=== PATIENT | male | born 1990 | race Hispanic/Latino ===

== ENCOUNTER 2020-03-13 11:53 | Inpatient (IN) | payer OTHER ==
[2020-03-13] MEDS ORDERED: NITROGLYCERIN 2% OINT 1 GM TP ONE (12:32)
[2020-03-13] MEDS ORDERED: FUROSEMIDE 40 MG/4 ML INJ IV ONE (12:36)
--- NOTE | 2020-03-13 12:36 | XRay Report ---
CHEST 2 VIEWS INDICATION / CLINICAL INFORMATION: Chest Pain. FINDINGS: SUPPORT DEVICES: None. HEART / MEDIASTINUM: Cardiomegaly. LUNGS / PLEURA: Borderline interstitial edema. No pleural effusion Signer Name: Jalil Valente MD Signed: 03/13/2020 12:31 PM Workstation Name: [id number]
--- NOTE | 2020-03-13 12:45 | Emergency Department Report ---
ED Shortness of Breath HPI - General Chief Complaint: High BP Stated Complaint: SHORTNESS OF BREATH Time Seen by Provider: 03/13/20 12:27 Source: patient Mode of arrival: Ambulatory Limitations: No Limitations - History of Present Illness Initial Comments: Patient is a 29-year-old F [place]gu[place] male with a past medical history of hypertension and congestive heart failure who is noncompliant with his medications who is presenting with shortness of breath over the last several days. He denies chest pain. States the shortness of breath is worse with exe rtion and with lying flat. Denies cough cold congestion fevers or chills. Patient states he has some mild swelling to his bilateral lower extremities with but this is mild. Patient states has been off of his medications because after he got out of the hospital last he was unable to get medications filled because he had no primary care physician. - Related Data Allergies Allergy/AdvReac Type Severity Reaction Status Date / Time No Known Allergies Allergy Unverified 03/13/20 12:05 ED Review of Systems ROS: Stated complaint: SHORTNESS OF BREATH Other details as noted in HPI Comment: All other systems reviewed and negative ED Past Medical Hx - Past Medical History Hx Hypertension: Yes Hx Congestive Heart Failure: Yes - Surgical History Past Surgical History?: No - Social History Smoking Status: Never Smoker ED Physical Exam - General Limitations: No Limitations General appearance: alert, in no apparent distress - Head Head exam: Present: atraumatic, normocephalic - Eye Eye exam: Present: normal appearance - ENT ENT exam: Present: mucous membranes moist - Neck Neck exam: Present: normal inspection - Respiratory Respiratory exam: Present: rales (mild at bilateral base). Absent: normal lung sounds bilaterally, respiratory distress, wheezes, rhonchi, stridor - Cardiovascular Cardiovascular Exam: Present: regular rate, normal rhythm, normal heart sounds. Absent: systolic murmur, diastolic murmur, rubs, gallop - GI/Abdominal GI/Abdominal exam: Present: soft, normal bowel sounds - Rectal Rectal exam: Present: deferred - Extremities Exam Extremities exam: Present: normal inspection, pedal edema (+1), other - Back Exam Back exam: Present: normal inspection - Neurological Exam Neurological exam: Present: alert, oriented X3 - Psychiatric Psychiatric exam: Present: normal affect, normal mood - Skin Skin exam: Present: warm, dry, intact, normal color. Absent: rash ED Course Vital Signs 03/13/20 03/13/20 03/13/20 12:08 13:08 13:15 Temperature 97.6 F Pulse Rate 104 H 98 H 98 H Respiratory 24 Rate Blood Pressure 207/154 190/157 190/157 O2 Sat by Pulse 96 Oximetry 03/13/20 14:26 Temperature Pulse Rate Respiratory 18 Rate Blood Pressure O2 Sat by Pulse 100 Oximetry ED Medical Decision Making - Lab Data Result diagrams: 03/13/20 12:33 03/13/20 12:33 Lab Results 03/13/20 03/13/20 Range/Units 12:33 12:33 WBC 9.7 (4.5-11.0) K/mm3 RBC 5.10 H (3.65-5.03) M/mm3 Hgb 11.7 L (11.8-15.2) gm/dl Hct 37.1 (35.5-45.6) % MCV 73 L (84-94) fl MCH 23 L (28-32) pg MCHC 32 (32-34) % RDW 19.2 H (13.2-15.2) % Plt Count 254 (140-440) K/mm3 Lymph % (Auto) 24.6 (13.4-35.0) % [place] % (Auto) 4.9 (0.0-7.3) % Eos % (Auto) 2.6 (0.0-4.3) % Baso % (Auto) 0.7 (0.0-1.8) % Lymph # (Auto) 2.4 (1.2-5.4) K/mm3 [place] # (Auto) 0.5 (0.0-0.8) K/mm3 Eos # (Auto) 0.3 (0.0-0.4) K/mm3 Baso # (Auto) 0.1 (0.0-0.1) K/mm3 Seg Neutrophils % 67.2 (40.0-70.0) % Seg Neutrophils # 6.5 (1.8-7.7) K/mm3 Sodium 140 (137-145) mmol/L Potassium 4.0 (3.6-5.0) mmol/L Chloride 106.8 (98-107) mmol/L Carbon Dioxide 20 L (22-30) mmol/L Anion Gap 17 mmol/L BUN 28 H (9-20) mg/dL Creatinine 1.3 (0.8-1.3) mg/dL Estimated GFR > 60 ml/min BUN/Creatinine Ratio 22 % Glucose 91 (75-100) mg/dL Calcium 8.6 (8.4-10.2) mg/dL Troponin T < 0.010 (0.00-0.029) ng/mL NT-Pro-B Natriuret Pep 6220 H (0-450) pg/mL - Radiology Data [facility] [address] [place] [address] XRay Report Signed Patient: EMILI CASTILLO MR#: [id number] : 1990 Acct:[id number] Age/Sex: 29 / M ADM Date: 03/13/20 Loc: ED Attending Dr: Ordering Physician: KHOA VILLA MD Date of Service: 03/13/20 Procedure(s): XR chest routine 2V Accession Number(s): [id number] cc: KHOA VILLA MD Fluoro Time In Minutes: CHEST 2 VIEWS INDICATION / CLINICAL INFORMATION: Chest Pain. FINDINGS: SUPPORT DEVICES: None. HEART / MEDIASTINUM: Cardiomegaly. LUNGS / PLEURA: Borderline interstitial edema. No pleural effusion Signer Name: Jalil Valente MD Signed: 03/13/2020 12:31 PM Workstation Name: [id number] Vital Signs 03/13/20 03/13/20 03/13/20 12:08 13:08 13:15 Temperature 97.6 F Pulse Rate 104 H 98 H 98 H Respiratory 24 Rate Blood Pressure 207/154 190/157 190/157 O2 Sat by Pulse 96 Oximetry 03/13/20 14:26 Temperature Pulse Rate Respiratory 18 Rate Blood Pressure O2 Sat by Pulse 100 Oximetry - Medical Decision Making Patient is a 29-year-old F [place] male has been noncompliant with his blood pressure medicines and medicines for congestive heart failure. Patient states he is unsure if he is on Lasix. He has been off of these medications for greater than a month. Patient is blood pressure did respond to labetalol.Nitropaste was placed on the patient's chest for preload reduction Patient was given a total of 60 mg of l Lasix and only diuresed 250 cc. Continued to be short of breath especially with movement. Do believe the patient would benefit from admission. . Patient be admitted to the hospitalist service. Critical Care Time: Yes (30) Critical care attestation.: If time is entered above; I have spent that time in minutes in the direct care of this critically ill patient, excluding procedure time. ED Disposition Clinical Impression: Hypertensive urgency, malignant, Acute congestive heart failure Disposition: OP ADMIT IP TO THIS HOSP Is pt being admited?: Yes Does the pt Need Aspirin: No Condition: Stable Time of Disposition: 14:51
[2020-03-13 13:11] LABS: Basophils # (Auto) 0.1 K/mm3 (0.0-0.1); Basophils % (Auto) 0.7 % (0.0-1.8); Eosinophils # (Auto) 0.3 K/mm3 (0.0-0.4); Eosinophils % (Auto) 2.6 % (0.0-4.3); Hematocrit 37.1 % (35.5-45.6); Hemoglobin 11.7 gm/dl (11.8-15.2); Lymphocytes # (Auto) 2.4 K/mm3 (1.2-5.4); Lymphocytes % (Auto) 24.6 % (13.4-35.0); Mean Corpuscular HGB Conc 32 % (32-34); Mean Corpuscular Volume 73 fl (84-94); Monocytes # (Auto) 0.5 K/mm3 (0.0-0.8); Monocytes % (Auto) 4.9 % (0.0-7.3); Platelet Count 254 K/mm3 (140-440); Red Cell Distribution Width 19.2 % (13.2-15.2)
[2020-03-13 13:25] LABS: BUN/Creatinine Ratio 22; Blood Urea Nitrogen 28 mg/dL (9-20); Calcium 8.6 mg/dL (8.4-10.2); Hemolysis Index 6
[2020-03-13] MEDS ORDERED: FUROSEMIDE 20 MG/2 ML INJ IV ONE (13:50)
[2020-03-13] MEDS ORDERED: METOCLOPRAMIDE 10 MG/2 ML INJ IV PRN (22:48)
[2020-03-13] MEDS ORDERED: HYDROmorphone 1 MG/1 ML INJ IV PRN (22:48)
[2020-03-13] MEDS ORDERED: oxyCODONE /ACETAMINOPHEN 5-325MG TAB PO PRN (22:48)
[2020-03-13] MEDS ORDERED: ACETAMINOPHEN 325 MG TAB PO PRN (22:48)
[2020-03-13] MEDS ORDERED: ONDANSETRON 4 MG/2 ML INJ IV PRN (22:48)
--- NOTE | 2020-03-13 22:54 | History and Physical Report ---
History of Present Illness Date of examination: 03/13/20 Date of admission: 03/13/20 14:52 Chief complaint: SOB 1 week History of present illness: Patient is a 29-year-old F [place] male with a past medical history of hypertension and congestive heart failure who is noncompliant with his medications who is presenting with shortness of breath over the last several days. He denies chest pain. States the shortness of breath is worse with exertion and with lying flat. Denies cough cold congestion fevers or chills. Patient states he has some mild swelling to his bilateral lower extremities with but this is mild. Patient states has been off of his medications because after he got out of the hospital last he was unable to get medications filled because he had no primary care physician. - Past Medical History --Hypertension: Yes --Congestive Heart Failure: Yes - Surgical History Past Surgical History?: No - Social History Smoking Status: Never Smoker Family history Htn Review of Systems ROS: Stated complaint: SHORTNESS OF BREATH Other details as noted in HPI Comment: All other systems reviewed and negative Medications and Allergies Allergies Allergy/AdvReac Type Severity Reaction Status Date / Time No Known Allergies Allergy Unverified 03/13/20 12:05 Home Medications Medication Instructions Recorded Confirmed Last Taken Type No Known Home Medications [No 03/13/20 03/13/20 Unknown History Reported Home Medications] Exam - Constitutional Vitals: Temp Pulse Resp BP Pulse Ox 98.3 F 86 20 163/122 97 03/13/20 19:54 03/13/20 19:54 03/13/20 19:54 03/13/20 19:54 03/13/20 19:54 General appearance: Present: mild distress, well-nourished - EENT Eyes: Present: PERRL ENT: hearing intact, clear oral mucosa - Neck Neck: Present: supple, normal ROM - Respiratory Respiratory effort: normal Respiratory: bilateral: CTA - Cardiovascular Heart rate: 88 Rhythm: regular Heart Sounds: Present: S1 & S2. Absent: rub, click - Extremities Extremities: no ischemia, pulses intact, pulses symmetrical, No edema Peripheral Pulses: within normal limits - Abdominal General gastrointestinal: Present: soft, non-tender, non-distended, normal bowel sounds Male genitourinary: Present: normal - Integumentary Integumentary: Present: clear, warm, dry - Musculoskeletal Musculoskeletal: gait normal, strength equal bilaterally - Psychiatric Psychiatric: appropriate mood/affect, intact judgment & insight - Neurologic Neurologic: CNII-XII intact, moves all extremities - Allied Health Allied health notes reviewed: nursing, case management HEART Score - HEART Score History: Highly suspicious EKG: Non-specific Age: < 45 Risk factors: 1-2 risk factors Troponin: Troponin T < 0.010 ng/mL (0.00-0.029) 03/13/20 19:16 Troponin: < normal limit HEART Score: 4 - Critical Actions Critical Actions: 4-6 pts:12-16.6% risk of adverse cardiac event. Should be admitted Results - Labs CBC & Chem 7: 03/14/20 04:53 03/14/20 04:53 Labs: Laboratory Last Values WBC 9.7 K/mm3 (4.5-11.0) 03/13/20 12:33 RBC 5.10 M/mm3 (3.65-5.03) H 03/13/20 12:33 Hgb 11.7 gm/dl (11.8-15.2) L 03/13/20 12:33 Hct 37.1 % (35.5-45.6) 03/13/20 12:33 MCV 73 fl (84-94) L 03/13/20 12:33 MCH 23 pg (28-32) L 03/13/20 12:33 MCHC 32 % (32-34) 03/13/20 12:33 RDW 19.2 % (13.2-15.2) H 03/13/20 12:33 Plt Count 254 K/mm3 (140-440) 03/13/20 12:33 Lymph % (Auto) 24.6 % (13.4-35.0) 03/13/20 12:33 [place] % (Auto) 4.9 % (0.0-7.3) 03/13/20 12:33 Eos % (Auto) 2.6 % (0.0-4.3) 03/13/20 12:33 Baso % (Auto) 0.7 % (0.0-1.8) 03/13/20 12:33 Lymph # (Auto) 2.4 K/mm3 (1.2-5.4) 03/13/20 12:33 [place] # (Auto) 0.5 K/mm3 (0.0-0.8) 03/13/20 12:33 Eos # (Auto) 0.3 K/mm3 (0.0-0.4) 03/13/20 12:33 Baso # (Auto) 0.1 K/mm3 (0.0-0.1) 03/13/20 12:33 Seg Neutrophils % 67.2 % (40.0-70.0) 03/13/20 12:33 Seg Neutrophils # 6.5 K/mm3 (1.8-7.7) 03/13/20 12:33 Sodium 140 mmol/L (137-145) 03/13/20 12:33 Potassium 4.0 mmol/L (3.6-5.0) 03/13/20 12:33 Chloride 106.8 mmol/L (98-107) 03/13/20 12:33 Carbon Dioxide 20 mmol/L (22-30) L 03/13/20 12:33 Anion Gap 17 mmol/L 03/13/20 12:33 BUN 28 mg/dL (9-20) H 03/13/20 12:33 Creatinine 1.3 mg/dL (0.8-1.3) 03/13/20 12:33 Estimated GFR > 60 ml/min 03/13/20 12:33 BUN/Creatinine Ratio 22 % 03/13/20 12:33 Glucose 91 mg/dL (75-100) 03/13/20 12:33 Calcium 8.6 mg/dL (8.4-10.2) 03/13/20 12:33 Troponin T < 0.010 ng/mL (0.00-0.029) 03/13/20 19:16 NT-Pro-B Natriuret Pep 6220 pg/mL (0-450) H 03/13/20 12:33 Short CBC 03/13/20 03/14/20 Range/Units 12:33 04:53 WBC 9.7 8.0 (4.5-11.0) K/mm3 Hgb 11.7 L 10.4 L (11.8-15.2) gm/dl Hct 37.1 33.5 L (35.5-45.6) % Plt Count 254 206 (140-440) K/mm3 BMP 03/13/20 03/14/20 12:33 04:53 Sodium 140 144 Potassium 4.0 3.8 Chloride 106.8 107.5 H Carbon Dioxide 20 L 23 BUN 28 H 24 H Creatinine 1.3 1.4 H Glucose 91 84 Calcium 8.6 8.5 Cardiac Enzymes 03/13/20 03/13/20 03/13/20 Range/Units 12:33 15:29 19:16 Troponin T < 0.010 < 0.010 < 0.010 (0.00-0.029) ng/mL Liver Function 03/14/20 Range/Units 04:53 Total Bilirubin 0.90 (0.1-1.2) mg/dL AST 33 (5-40) units/L ALT 59 H (7-56) units/L Alkaline Phosphatase 72 (35-129) units/L Albumin 3.1 L (3.9-5) g/dL - Imaging and Cardiology EKG: report reviewed (LVH by voltage criteria) Chest x-ray: report reviewed (Borderline interstitial edema) Farah/IV: Voiding Method Toilet IV Catheter Type [Right Hand] INT / Saline Lock Assessment and Plan Advance Directives: Yes (Full code) VTE prophylaxis?: Chemical Plan of care discussed with patient/family: Yes - Patient Problems (1) Acute congestive heart failure Current Visit: Yes Status: Acute Qualifiers: Heart failure type: combined systolic and diastolic Qualified Code(s): I50.41 - Acute combined systolic (congestive) and diastolic (congestive) heart failure Plan to address problem: Patient has early onset congestive cardiac myopathy Patient is noncompliant IV Lasix 40 every 12 started KCl started Last known echo not available This is his first visit to this hospital (2) Hypertensive urgency, malignant Current Visit: Yes Status: Acute Plan to address problem: Patient is noncompliant Patient started on hydralazine 50 every 8 Coreg 12.5 and hydralazine IV as needed Add valsartan if necessary Patient is noncompliant Counseled about compliance (3) DVT prophylaxis Current Visit: Yes Status: Acute Plan to address problem: On heparin and GI prophylaxis
[2020-03-14] MEDS: hydrALAZINE 25 MG TAB PO SCH ×4 (00:12→21:26)
[2020-03-14] MEDS: carvediloL 12.5 MG TAB PO SCH ×3 (00:12→12:11)
[2020-03-14] MEDS: POTASSIUM CHLORIDE ER 20 MEQ TAB PO SCH ×3 (00:12→21:26)
[2020-03-14] MEDS: FUROSEMIDE 40 MG/4 ML INJ IV SCH ×2 (05:08→17:22)
[2020-03-14 05:39] LABS: Basophils # (Auto) 0.1 K/mm3 (0.0-0.1); Basophils % (Auto) 0.7 % (0.0-1.8); Eosinophils # (Auto) 0.2 K/mm3 (0.0-0.4); Eosinophils % (Auto) 2.4 % (0.0-4.3); Hematocrit 33.5 % (35.5-45.6); Hemoglobin 10.4 gm/dl (11.8-15.2); Lymphocytes # (Auto) 2.9 K/mm3 (1.2-5.4); Mean Corpuscular HGB Conc 31 % (32-34); Mean Corpuscular Volume 74 fl (84-94); Monocytes # (Auto) 0.4 K/mm3 (0.0-0.8); Monocytes % (Auto) 5.6 % (0.0-7.3); Platelet Count 206 K/mm3 (140-440); Red Blood Count 4.54 M/mm3 (3.65-5.03); Red Cell Distribution Width 18.8 % (13.2-15.2)
[2020-03-14 06:05] LABS: Albumin 3.1 g/dL (3.9-5); Calcium 8.5 mg/dL (8.4-10.2)
[2020-03-14] MEDS: FAMOTIDINE 20 MG TAB PO SCH ×2 (09:54→21:26)
--- NOTE | 2020-03-14 11:06 | Consultation ---
History of Present Illness Consult date: 03/14/20 Requesting physician: JOELLE HANDLEY Consult reason: congestive heart failure, hypertension History of present illness: The pt is a 29 YO male with a past medical history of recently diagnosed HFrEF, CMP with EF ~30% per pt report, HTN, probable CELIO, morbid obesity. Pt is previously unknown to our practice. He presented with c/o progressively worsening SOB, MCCOY, orthopnea, BLE swelling for several weeks prior to arrival. He states that he was hospitalized for the first time in August 2019 at [facility] with similar symptoms. During that hospitalization, he reports undergoing echocardiogram and pharmacological stress testing. He was reportedly diagnosed with HF and CMP. He was discharged home on several medications which he did not take due to lack of insurance. He recently got a new job with health insurance. He denies any chest pain, palpitations, n/v, diaphoresis, dizziness or syncope. Admission BP 207/154. Past History Past Medical History: heart failure, hypertension, other (? CELIO, obesity) Medications and Allergies Allergies Allergy/AdvReac Type Severity Reaction Status Date / Time No Known Allergies Allergy Unverified 03/13/20 12:05 Home Medications Medication Instructions Recorded Confirmed Last Taken Type No Known Home Medications [No 03/13/20 03/13/20 Unknown History Reported Home Medications] Active Meds: Active Medications Acetaminophen (Tylenol) 650 mg PO Q4H PRN PRN Reason: Pain MILD(1-3)/Fever >100.5/HAGEN Carvedilol (Coreg) 12.5 mg PO BID [facility] Last Admin: 03/14/20 09:54 Dose: 12.5 mg Documented by: Famotidine (Pepcid) 20 mg PO BID [facility] Last Admin: 03/14/20 09:54 Dose: 20 mg Documented by: Furosemide (Lasix) 40 mg IV 0600,1800 [facility] Last Admin: 03/14/20 05:08 Dose: 40 mg Documented by: Hydralazine HCl (Apresoline) 50 mg PO Q8HR [facility] Last Admin: 03/14/20 05:11 Dose: 50 mg Documented by: Hydromorphone HCl (Dilaudid) 0.5 mg IV Q3H PRN PRN Reason: Pain , Severe (7-10) Metoclopramide HCl (Reglan) 10 mg IV Q6H PRN PRN Reason: Nausea And Vomiting Ondansetron HCl (Zofran) 4 mg IV Q8H PRN PRN Reason: Nausea And Vomiting Oxycodone/Acetaminophen (Percocet 5/325) 1 tab PO Q6H PRN PRN Reason: Pain, Moderate (4-6) Potassium Chloride (K-Dur) 20 meq PO Q12HR [facility] Last Admin: 03/14/20 09:54 Dose: 20 meq Documented by: Sodium Chloride (Sodium Chloride Flush Syringe 10 Ml) 10 ml IV BID [facility] Last Admin: 03/14/20 09:54 Dose: 10 ml Documented by: Sodium Chloride (Sodium Chloride Flush Syringe 10 Ml) 10 ml IV PRN PRN PRN Reason: LINE FLUSH Review of Systems Constitutional: no fever, no chills, no sweats Ears, nose, mouth and throat: no ear pain, no nose pain, no sinus pressure, no sinus pain Cardiovascular: orthopnea, edema, shortness of breath, dyspnea on exertion, high blood pressure, leg edema, decreased exercise tolerance, no chest pain, no palpitations, no rapid/irregular heart beat, no syncope, no lightheadedness Respiratory: shortness of breath, dyspnea on exertion, no cough, no congestion, no pain on inspiration Gastrointestinal: no abdominal pain, no nausea, no vomiting, no diarrhea, no constipation, no change in bowel habits Genitourinary Male: no dysuria, no hematuria, no flank pain, no discharge, no urinary frequency, no urinary hesitancy Musculoskeletal: no neck stiffness, no neck pain, no shooting arm pain, no arm numbness/tingling, no low back pain, no shooting leg pain Integumentary: no rash, no pruritis, no redness, no sores, no wounds Neurological: no head injury, no paralysis, no weakness, no parathesias, no numbness, no tingling, no seizures, no syncope Psychiatric: no anxiety Endocrine: no cold intolerance, no heat intolerance Hematologic/Lymphatic: no easy bruising Allergic/Immunologic: no urticaria Physical Examination Vital Signs Temp Pulse Resp BP Pulse Ox 97.6 F 104 H 24 207/154 96 03/13/20 12:08 03/13/20 12:08 03/13/20 12:08 03/13/20 12:08 03/13/20 12:08 General appearance: no acute distress HEENT: Positive: PERRL, Normocephaly, Mucus Membranes Moist Neck: Positive: neck supple, trachea midline Cardiac: Positive: Reg Rate and Rhythm, S1/S2 Lungs: Positive: Decreased Breath Sounds Neuro: Positive: Grossly Intact Abdomen: Negative: Tender Musculoskeletal: No Pain Extremities: Present: +2 Edema (BLE) Results 03/14/20 04:53 03/14/20 04:53 Cardiac Enzymes 03/14/20 Range/Units 04:53 AST 33 (5-40) units/L CBC 03/13/20 03/14/20 Range/Units 12:33 04:53 WBC 9.7 8.0 (4.5-11.0) K/mm3 RBC 5.10 H 4.54 (3.65-5.03) M/mm3 Hgb 11.7 L 10.4 L (11.8-15.2) gm/dl Hct 37.1 33.5 L (35.5-45.6) % Plt Count 254 206 (140-440) K/mm3 Lymph # (Auto) 2.4 2.9 (1.2-5.4) K/mm3 [place] # (Auto) 0.5 0.4 (0.0-0.8) K/mm3 Eos # (Auto) 0.3 0.2 (0.0-0.4) K/mm3 Baso # (Auto) 0.1 0.1 (0.0-0.1) K/mm3 Comprehensive Metabolic Panel 03/13/20 03/14/20 Range/Units 12:33 04:53 Sodium 140 144 (137-145) mmol/L Potassium 4.0 3.8 (3.6-5.0) mmol/L Chloride 106.8 107.5 H (98-107) mmol/L Carbon Dioxide 20 L 23 (22-30) mmol/L BUN 28 H 24 H (9-20) mg/dL Creatinine 1.3 1.4 H (0.8-1.3) mg/dL Glucose 91 84 (75-100) mg/dL Calcium 8.6 8.5 (8.4-10.2) mg/dL AST 33 (5-40) units/L ALT 59 H (7-56) units/L Alkaline Phosphatase 72 (35-129) units/L Total Protein 5.6 L (6.3-8.2) g/dL Albumin 3.1 L (3.9-5) g/dL - Imaging and Cardiology EKG: report reviewed, image reviewed EKG interpretations - Telemetry EKG Rhythm: Sinus Rhythm - EKG Sinus rhythms and dysrhythmias: sinus rhythm Assessment and Plan Cont GDMT and IV diuretics as tolerated. F/u BMP in AM. Optimize anti- hypertensive regimen. Attempt to obtain medical records from [facility] - records requested today. Will follow. The patient has been seen in conjunction with Dr. Marie who agrees with the assessment and plan of care. - Patient Problems (1) Acute HFrEF (heart failure with reduced ejection fraction) Current Visit: Yes Status: Acute (2) Cardiomyopathy Current Visit: Yes Status: Chronic Plan to address problem: EF reportedly ~30% (3) Uncontrolled hypertension Current Visit: Yes Status: Chronic (4) Morbid obesity Current Visit: Yes Status: Chronic (5) Sleep apnea Current Visit: Yes Status: Suspected
[2020-03-14] MEDS: LOSARTAN 25 MG TAB PO SCH (12:09)
[2020-03-14] MEDS: carvediloL 25 MG TAB PO SCH ×2 (12:12→21:26)
--- NOTE | 2020-03-14 15:41 | Progress Note ---
Assessment and Plan -- Acute systolic congestive heart failure Patient has early onset congestive cardiac myopathy -EF reportedly ~30% Patient is noncompliant IV Lasix 40 mg every 12h started, KCl started Last known echo not available This is his first visit to this hospital --Hypertensive urgency, malignant Patient is noncompliant Patient started on IV Lasix, Coreg 25 twice daily and losartan Counseled about compliance -- Morbid obesity Dietary recommendation when clinically stable -- Sleep apnea Recommended outpatient sleep study -- JENAE, likely due to diuresis -Continue to monitor renal function --DVT prophylaxis On heparin and GI prophylaxis 03/14; cont iv diuretics, follow ins/os, daily wt. adjust BP meds. Requested medical records form [facility]. Subjective Date of service: 03/14/20 Interval history: Patient seen and examined. Medical records and medication list reviewed. No acute event overnight noted by the RN. Patient denies any chest pain but complains of difficulty breathing on exertion. Patient is tolerating diet. Discussed plan of care at bedside with patient. Objective - Exam Narrative Exam: GENERAL: well-developed and well-nourished lying on bed appeared to be in no discomfort. HEENT: Normocephalic. Atraumatic. No conjunctival congestion or icterus. Patient has moist mucous membranes. NECK: Supple. Trachea midline. CHEST/LUNGS: Diminished breath sound auscultated bilaterally, breathing nonlabored. HEART/CARDIOVASCULAR: Regular in rate and rhythm. S1 and S2 positive. ABDOMEN: Abdomen is soft, nontender. Patient has normal bowel sounds. SKIN: There is no rash. Warm and dry. NEURO: No focal motor deficit. Follows command. MUSCULOSKELETAL: No joint effusion or tenderness. EXTRIMITY: 2+ edema, no cyanosis or clubbing. PSYCH: Cooperative. - Constitutional Vitals: Vital Signs - 12hr 03/14/20 03/14/20 03/14/20 04:50 07:47 09:00 Temperature 97.6 F 97.7 F Pulse Rate 78 81 78 Pulse Rate [ Apical] Pulse Rate [ Left Radial] Pulse Rate [ Right Radial] Respiratory 18 20 Rate Blood Pressure 145/97 147/96 O2 Sat by Pulse 96 98 Oximetry 03/14/20 03/14/20 03/14/20 09:54 10:00 12:09 Temperature Pulse Rate 85 78 Pulse Rate [ 78 Apical] Pulse Rate [ 78 Left Radial] Pulse Rate [ 78 Right Radial] Respiratory 22 Rate Blood Pressure 167/128 132/92 O2 Sat by Pulse Oximetry 03/14/20 03/14/20 12:12 13:52 Temperature Pulse Rate 78 78 Pulse Rate [ Apical] Pulse Rate [ Left Radial] Pulse Rate [ Right Radial] Respiratory Rate Blood Pressure 132/92 145/78 O2 Sat by Pulse Oximetry - Labs CBC & Chem 7: 03/14/20 04:53 03/15/20 04:46 Labs: Abnormal lab results 03/14/20 03/14/20 Range/Units 04:53 04:53 Hgb 10.4 L (11.8-15.2) gm/dl Hct 33.5 L (35.5-45.6) % MCV 74 L (84-94) fl MCH 23 L (28-32) pg MCHC 31 L (32-34) % RDW 18.8 H (13.2-15.2) % Lymph % (Auto) 37.0 H (13.4-35.0) % Chloride 107.5 H (98-107) mmol/L BUN 24 H (9-20) mg/dL Creatinine 1.4 H (0.8-1.3) mg/dL ALT 59 H (7-56) units/L Total Protein 5.6 L (6.3-8.2) g/dL Albumin 3.1 L (3.9-5) g/dL HEART Score - HEART Score EKG: Non-specific Age: < 45 Risk factors: 1-2 risk factors Troponin: Troponin T < 0.010 ng/mL (0.00-0.029) 03/13/20 19:16 Troponin: < normal limit - Critical Actions Critical Actions: 4-6 pts:12-16.6% risk of adverse cardiac event. Should be admitted
[2020-03-15] MEDS: FUROSEMIDE 40 MG/4 ML INJ IV SCH (05:11)
[2020-03-15] MEDS: hydrALAZINE 25 MG TAB PO SCH ×3 (05:11→21:32)
[2020-03-15 05:51] LABS: Calcium 8.5 mg/dL (8.4-10.2)
[2020-03-15] MEDS: FAMOTIDINE 20 MG TAB PO SCH ×2 (10:31→21:31)
[2020-03-15] MEDS: carvediloL 25 MG TAB PO SCH ×2 (10:32→21:31)
[2020-03-15] MEDS: LOSARTAN 25 MG TAB PO SCH (10:32)
[2020-03-15] MEDS: POTASSIUM CHLORIDE ER 20 MEQ TAB PO SCH ×2 (10:32→21:31)
--- NOTE | 2020-03-15 11:37 | Progress Note ---
Assessment and Plan -- Acute systolic congestive heart failure Patient has early onset congestive cardiac myopathy -EF reportedly ~30% Patient is noncompliant IV Lasix 40 mg every 12h started, KCl started Last known echo not available This is his first visit to this hospital --Hypertensive urgency, malignant Patient is noncompliant Patient started on IV Lasix, Coreg 25 twice daily and losartan Will add hydralazine 50mg q8h Counseled about compliance -- Morbid obesity Dietary recommendation when clinically stable -- Sleep apnea Recommended outpatient sleep study -- JENAE, likely due to diuresis -Continue to monitor renal function --DVT prophylaxis On heparin and GI prophylaxis 03/14; cont iv diuretics, follow ins/os, daily wt. adjust BP meds. Requested medical records form [facility] 03/15: Continue IV diuresis, follow ins and O's, BP remains elevated - continue to adjust BP medications Subjective Date of service: 03/15/20 Interval history: Patient seen and examined. Medical records and medication list reviewed. No acute event overnight noted by the RN. Patient denies any chest pain but complains of difficulty breathing on exertion. Patient is tolerating diet. Discussed plan of care at bedside with patient. Objective - Exam Narrative Exam: GENERAL: well-developed and well-nourished lying on bed appeared to be in no discomfort. HEENT: Normocephalic. Atraumatic. No conjunctival congestion or icterus. Patient has moist mucous membranes. NECK: Supple. Trachea midline. CHEST/LUNGS: Diminished breath sound auscultated bilaterally, breathing nonlabored. HEART/CARDIOVASCULAR: Regular in rate and rhythm. S1 and S2 positive. ABDOMEN: Abdomen is soft, nontender. Patient has normal bowel sounds. SKIN: There is no rash. Warm and dry. NEURO: No focal motor deficit. Follows command. MUSCULOSKELETAL: No joint effusion or tenderness. EXTRIMITY: 1+ edema, no cyanosis or clubbing. PSYCH: Cooperative. - Constitutional Vitals: Vital Signs - 12hr 03/14/20 03/15/20 03/15/20 23:45 03:00 04:37 Temperature 97.8 F 97.8 F Pulse Rate 75 74 76 Respiratory 20 18 Rate Blood Pressure 151/101 153/103 O2 Sat by Pulse 98 92 Oximetry 03/15/20 09:10 Temperature Pulse Rate 75 Respiratory 18 Rate Blood Pressure 164/116 O2 Sat by Pulse 97 Oximetry - Labs CBC & Chem 7: 03/14/20 04:53 03/15/20 04:46 Labs: Abnormal lab results 03/15/20 Range/Units 04:46 Chloride 109.2 H (98-107) mmol/L BUN 21 H (9-20) mg/dL Creatinine 1.4 H (0.8-1.3) mg/dL HEART Score - HEART Score EKG: Non-specific Age: < 45 Risk factors: 1-2 risk factors Troponin: Troponin T < 0.010 ng/mL (0.00-0.029) 03/13/20 19:16 Troponin: < normal limit - Critical Actions Critical Actions: 4-6 pts:12-16.6% risk of adverse cardiac event. Should be admitted
[2020-03-15] MEDS: amLODIPine 10 MG TAB PO SCH (12:51)
--- NOTE | 2020-03-15 13:28 | Progress Note ---
Assessment and Plan 29 Male noncompliant with meds 2/2 financial issues (He reports he currently has insurance) Acute CHF Accelerated hypertension Cardiomyopathy Hypertension ?CELIO morbid obesity Continue diuresis Stict I/O Monitor Cr/K+/MG++ Recommend ECHO Consider titrating losartan for better BP control Subjective Date of service: 03/15/20 Principal diagnosis: CHF Interval history: Patient sitting up in bed. States that his legs have decreased in size significantly. His breathing is somewhat improved as well. Objective Vital Signs Temp Pulse Resp BP Pulse Ox 03/15/20 12:51 78 153/104 03/15/20 10:00 18 03/15/20 09:10 75 18 164/116 97 03/15/20 04:37 97.8 F 76 18 153/103 92 03/15/20 03:00 74 03/14/20 23:45 97.8 F 75 20 151/101 98 03/14/20 20:23 97.7 F 87 20 169/121 97 03/14/20 17:00 86 03/14/20 14:45 97.7 F 78 18 114/73 95 03/14/20 13:52 78 145/78 - Physical Examination HEENT: Positive: PERRL, Normocephaly, Mucus Membranes Moist Neck: Positive: neck supple, trachea midline Cardiac: Positive: Reg Rate and Rhythm Lungs: Positive: Normal Exam, clear to auscultation Neuro: Positive: Grossly Intact Abdomen: Positive: Soft, Active Bowel Sounds. Negative: Tender Musculoskeletal: No Pain Extremities: Present: +2 Edema (BLE) - Labs and Meds Comprehensive Metabolic Panel 03/15/20 Range/Units 04:46 Sodium 144 (137-145) mmol/L Potassium 3.8 (3.6-5.0) mmol/L Chloride 109.2 H (98-107) mmol/L Carbon Dioxide 24 (22-30) mmol/L BUN 21 H (9-20) mg/dL Creatinine 1.4 H (0.8-1.3) mg/dL Glucose 83 (75-100) mg/dL Calcium 8.5 (8.4-10.2) mg/dL - Imaging and Cardiology EKG: report reviewed, image reviewed - EKG Sinus rhythms and dysrhythmias: sinus rhythm
[2020-03-16] MEDS: hydrALAZINE 25 MG TAB PO SCH (06:33)
[2020-03-16] MEDS ORDERED: hydrALAZINE 25 MG TAB PO SCH (08:35)
[2020-03-16] MEDS: POTASSIUM CHLORIDE ER 20 MEQ TAB PO SCH (09:30)
[2020-03-16] MEDS: carvediloL 25 MG TAB PO SCH (09:31)
[2020-03-16] MEDS: LOSARTAN 25 MG TAB PO SCH (09:31)
[2020-03-16] MEDS: amLODIPine 10 MG TAB PO SCH (09:32)
[2020-03-16] MEDS: FAMOTIDINE 20 MG TAB PO SCH (09:33)
[2020-03-16] MEDS ORDERED: FUROSEMIDE 40 MG/4 ML INJ IV SCH (10:00)
--- NOTE | 2020-03-16 11:33 | Progress Note ---
Assessment and Plan 29 Male noncompliant with meds 2/2 financial issues (He reports he currently has insurance) Acute on chronic HFrEF 25-30% Accelerated hypertension Cardiomyopathy Hypertension ?CELIO morbid obesity ECHO 03/15/20: mod to sever LVH, EF 25-30%, grade II diastolic dysfunction, severe LAE BP still elevated recommend increase losartan 50mg and start imdur 30 QD Change lasix PO 80 QDAY Stict I/O Monitor Cr/K+/MG++ Subjective Date of service: 03/16/20 Principal diagnosis: CHF Interval history: Patient sitting up in bed. States that his legs have decreased in size significantly. His breathing is somewhat improved as well. Objective Vital Signs Temp Pulse Resp BP Pulse Ox 03/16/20 09:32 84 147/104 03/16/20 09:31 84 147/104 03/16/20 06:33 80 147/98 03/16/20 04:44 97.8 F 78 20 147/98 94 03/16/20 03:00 76 03/15/20 22:00 20 03/15/20 21:32 88 163/113 03/15/20 21:31 88 163/113 03/15/20 20:44 98.6 F 84 18 163/113 95 03/15/20 17:20 82 18 149/106 97 03/15/20 12:52 83 18 153/104 95 03/15/20 12:51 78 153/104 - Physical Examination HEENT: Positive: PERRL, Normocephaly, Mucus Membranes Moist Neck: Positive: neck supple, trachea midline Cardiac: Positive: Reg Rate and Rhythm Lungs: Positive: clear to auscultation, Normal Breath Sounds Neuro: Positive: Grossly Intact Abdomen: Positive: Soft, Active Bowel Sounds. Negative: Tender Musculoskeletal: No Pain Extremities: Present: +2 Edema (BLE) - Imaging and Cardiology EKG: report reviewed, image reviewed Echo: report reviewed - EKG Sinus rhythms and dysrhythmias: sinus rhythm
[2020-03-16 12:49] VITALS: BP 147/93
[2020-03-16] MEDS ORDERED: hydrALAZINE 100 MG TAB PO SCH (14:00)
--- NOTE | 2020-03-16 14:56 | Discharge Summary ---
Providers - Providers Date of Admission: 03/14/20 15:17 Date of discharge: 03/16/20 Attending physician: JESSICA VIGIL 03/13/20 22:48 Consult to Physician [CONS] Routine Comment: Consulting Provider: JONO LOYA Physician Instructions: Reason For Exam: CHF exacerbation, hypertensive emergency Primary care physician: BOARD LAYER Hospitalization Condition: Stable Pertinent studies: CXR 2d echo Hospital course: The patient is a 29 YO male with a past medical history of recently diagnosed H FrEF on August 2019, CMP with EF ~30%, HTN, probable CELIO, morbid obesity presented with c/o progressively worsening SOB, MCCOY, orthopnea, BLE swelling for several weeks prior to arrival. He states that he was hospitalized for the first time in August 2019 at [facility] with similar symptoms. During that hospitalization, he reports undergoing echocardiogram and pharmacological stress testing. He was reportedly diagnosed with HF and CMP. He was discharged home on several medications which he did not take due to lack of insurance. He recently got a new job with health insurance. He admission BP was 207/154. He was placed on IV diuretics and admitted for further evaluation and management. Patient was admitted to telemetry floor with scheduled iv diuretics. Monitored with serial CE, EKG. Cardiology consulted, 2d echo obtained which showed EF 25 to 30%. Provided cardiac diet, daily weights, monitored in's and O's. He is BP medications were adjusted. Patients symptom improved with medical management. Patient was then discharged home in stable condition with outpt f/u. Daily course; 03/14; cont iv diuretics, follow ins/os, daily wt. adjust BP meds. Requested medical records form [facility] 03/15: Continue IV diuresis, follow ins and O's, BP remains elevated - continue to adjust BP medications 03/16: 2d echo showed Ef 25-30%. changed lasix to po, d/c home with outpt f/u. Discharge diagnosis: -- Acute systolic congestive heart failure, Ef 25-30% --Hypertensive urgency, malignant ---- Morbid obesity Dietary recommendation when clinically stable -- Sleep apnea Recommended outpatient sleep study -- JENAE on CKD, likely from diuresis, stable on d/c --Noncompliance, counseled for medication and outpatient follow-up compliance Disposition: TO HOME OR SELFCARE Time spent for discharge: 34 minutes Core Measure Documentation - Palliative Care Palliative Care/ Comfort Measures: Not Applicable - Core Measures Any of the following diagnoses?: none Exam - Physical Exam Narrative exam: GENERAL: well-developed morbidly obese -[place]aj[place] male lying on bed appeared to be in no discomfort. HEENT: Normocephalic. Atraumatic. No conjunctival congestion or icterus. Patient has moist mucous membranes. NECK: Supple. Trachea midline. CHEST/LUNGS: Diminished breath sound auscultated bilaterally, breathing nonlabored. HEART/CARDIOVASCULAR: Regular in rate and rhythm. S1 and S2 positive. ABDOMEN: Abdomen is soft, nontender. Patient has normal bowel sounds. SKIN: There is no rash. Warm and dry. NEURO: No focal motor deficit. Follows command. MUSCULOSKELETAL: No joint effusion or tenderness. EXTRIMITY: no edema, no cyanosis or clubbing. PSYCH: Cooperative. - Constitutional Vitals: Temp Pulse Resp BP Pulse Ox 97.3 F L 79 20 147/93 94 03/16/20 08:50 03/16/20 12:47 03/16/20 10:00 03/16/20 12:47 03/16/20 08:50 Plan Activity: advance as tolerated Weight Bearing Status: Weight Bear as Tolerated Diet: low fat, low salt Special Instructions: restrict fluid intake to (1.2L per day), record daily weights, record daily BP diary Follow up with: PRIMARY CARE, [Primary Care Provider] - 7 Days TEETEE TAYLOR MD [Staff Physician] - 7 Days Prescriptions: amLODIPine 10 mg PO QDAY #30 tablet hydrALAZINE [Apresoline TAB] 100 mg PO Q8HR #90 tab carvediloL [Coreg] 25 mg PO BID #60 tablet Losartan [Cozaar] 50 mg PO QDAY #30 tablet Aspirin EC [Halfprin EC] 81 mg PO QDAY #30 tablet. ISOSORBIDE MONOnitrate [Imdur ER] 30 mg PO QDAY #30 tablet Furosemide [Lasix TAB] 40 mg PO QDAY #30 tablet
[2020-03-17] MEDS ORDERED: LOSARTAN 50 MG TAB PO SCH (10:00)
[2020-03-17] MEDS ORDERED: FUROSEMIDE 40 MG TAB PO SCH (10:00)
[2020-03-17] MEDS ORDERED: LOSARTAN 25 MG TAB PO ONE (11:34)
== END 2020-03-16 17:40 | disposition home or self-care (01) | DRG 291 ==
LOC: ED 11:53 → 4A 14:52 → OBSVTOIN 03-14 15:17
PROVIDERS: ADMIT Internal Medicine; ATTEND Internal Medicine
DX: I13.0 Hypertensive heart and chronic kidney disease with heart failure and stage 1 through stage 4 chronic kidney disease, or unspecified chronic kidney disease (principal); I50.43 Acute on chronic combined systolic (congestive) and diastolic (congestive) heart failure; Z68.42 Body mass index [BMI] 45.0-49.9, adult; N17.9 Acute kidney failure, unspecified; I42.9 Cardiomyopathy, unspecified; I16.0 Hypertensive urgency; Z91.14 Patient's other noncompliance with medication regimen; E66.01 Morbid (severe) obesity due to excess calories; G47.33 Obstructive sleep apnea (adult) (pediatric); N18.9 Chronic kidney disease, unspecified
CPT/HCPCS: 36415; 71046; 80048; 80053; 83880; 84484; 85025; 90471; 93005; 93306; 96374; 96375; G0378; J1940

== ENCOUNTER 2021-07-28 20:26 | Inpatient (IN) | payer OTHER ==
[2021-07-28] MEDS ORDERED: FUROSEMIDE 40 MG/4 ML INJ IV ONE ×2 (21:57→23:31)
--- NOTE | 2021-07-28 22:04 | Emergency Department Report ---
ED Shortness of Breath HPI - General Chief Complaint: Upper Respiratory Infection Stated Complaint: SOB Time Seen by Provider: 07/28/21 21:49 Source: patient Mode of arrival: Ambulatory Limitations: No Limitations - History of Present Illness Initial Comments: Patient is 30 years old male with history of congestive heart failure and hypertension. Patient presented to the ER complaining of shortness of breath and difficulty breathing for the last 3 days. Patient stated that he is out of his all his medication. Patient denied any chest pain, fever or chills. MD Complaint: shortness of breath -: days(s) (4) Severity: moderate Known History Of: congestive heart failure Associated Symptoms: denies other symptoms - Related Data Previous Rx's Medication Instructions Recorded Last Taken Type Aspirin EC [Halfprin EC] 81 mg PO QDAY 30 Days #30 tablet 07/30/21 Unknown Rx Furosemide [Lasix TAB] 40 mg PO QDAY 30 Days #30 tablet 07/30/21 Unknown Rx ISOSORBIDE MONOnitrate [Imdur ER] 30 mg PO QDAY 30 Days #30 tablet 07/30/21 Unknown Rx Losartan [Cozaar] 50 mg PO QDAY 30 Days #30 tablet 07/30/21 Unknown Rx amLODIPine 10 mg PO QDAY 30 Days #30 tablet 07/30/21 Unknown Rx carvediloL [Coreg] 25 mg PO BID@0800,1700 30 Days #60 07/30/21 Unknown Rx tablet hydrALAZINE [Apresoline TAB] 100 mg PO Q8HR 30 Days #90 tab 07/30/21 Unknown Rx Allergies Allergy/AdvReac Type Severity Reaction Status Date / Time No Known Allergies Allergy Unverified 03/13/20 12:05 ED Review of Systems ROS: Stated complaint: SOB Other details as noted in HPI Comment: All other systems reviewed and negative Constitutional: denies: chills, fever Respiratory: shortness of breath, SOB with exertion, SOB at rest. denies: cough, wheezing Cardiovascular: denies: chest pain, palpitations Gastrointestinal: denies: abdominal pain, nausea, vomiting Neurological: denies: headache, weakness, numbness, paresthesias, confusion, abnormal gait ED Past Medical Hx - Past Medical History Hx Hypertension: Yes Hx Congestive Heart Failure: Yes - Social History Smoking Status: Never Smoker - Medications Home Medications: Home Medications Medication Instructions Recorded Confirmed Last Taken Type Aspirin EC [Halfprin EC] 81 mg PO QDAY 30 Days #30 tablet 07/30/21 Unknown Rx Furosemide [Lasix TAB] 40 mg PO QDAY 30 Days #30 tablet 07/30/21 Unknown Rx ISOSORBIDE MONOnitrate [Imdur ER] 30 mg PO QDAY 30 Days #30 tablet 07/30/21 Unknown Rx Losartan [Cozaar] 50 mg PO QDAY 30 Days #30 tablet 07/30/21 Unknown Rx amLODIPine 10 mg PO QDAY 30 Days #30 tablet 07/30/21 Unknown Rx carvediloL [Coreg] 25 mg PO BID@0800,1700 30 Days #60 07/30/21 Unknown Rx tablet hydrALAZINE [Apresoline TAB] 100 mg PO Q8HR 30 Days #90 tab 07/30/21 Unknown Rx ED Physical Exam - General Limitations: No Limitations General appearance: alert, in no apparent distress - Head Head exam: Present: atraumatic, normocephalic, normal inspection - Eye Eye exam: Present: normal appearance - ENT ENT exam: Present: normal exam, normal orophraynx, mucous membranes moist - Neck Neck exam: Present: normal inspection, full ROM. Absent: tenderness, m eningismus - Respiratory Respiratory exam: Present: rales, decreased breath sounds. Absent: wheezes, prolonged expiratory - Cardiovascular Cardiovascular Exam: Present: regular rate, normal rhythm, normal heart sounds - GI/Abdominal GI/Abdominal exam: Present: soft, normal bowel sounds. Absent: distended, tenderness, guarding, rebound, rigid, organomegaly, mass, bruit, pulsatile mass, hernia - Extremities Exam Extremities exam: Present: normal inspection, full ROM, normal capillary refill. Absent: tenderness - Back Exam Back exam: Present: normal inspection. Absent: full ROM, CVA tenderness (R), CVA tenderness (L) - Neurological Exam Neurological exam: Present: alert, oriented X3, CN II-XII intact, normal gait, reflexes normal. Absent: motor sensory deficit - Psychiatric Psychiatric exam: Present: normal mood - Skin Skin exam: Present: warm, intact, normal color ED Course Vital Signs 07/28/21 07/28/21 07/28/21 21:11 21:15 22:41 Temperature 98.2 F Pulse Rate 100 H 98 H Respiratory 18 27 H Rate Blood Pressure 230/166 Blood Pressure [Right] O2 Sat by Pulse 96 96 Oximetry 07/28/21 07/28/21 07/28/21 22:44 22:46 22:52 Temperature Pulse Rate 96 H 97 H 96 H Respiratory 18 15 Rate Blood Pressure 198/143 198/143 Blood Pressure 198/143 [Right] O2 Sat by Pulse 95 97 Oximetry 07/28/21 07/28/21 07/28/21 23:00 23:16 23:30 Temperature Pulse Rate 97 H 96 H 90 Respiratory 24 34 H 18 Rate Blood Pressure 196/143 191/137 194/132 Blood Pressure [Right] O2 Sat by Pulse 94 91 95 Oximetry 07/28/21 07/29/21 07/29/21 23:46 00:00 00:16 Temperature Pulse Rate 90 94 H 92 H Respiratory 28 H 17 38 H Rate Blood Pressure 179/138 186/144 191/143 Blood Pressure [Right] O2 Sat by Pulse 95 96 94 Oximetry 07/29/21 07/29/21 07/29/21 00:30 00:46 01:00 Temperature Pulse Rate 88 108 H 99 H Respiratory 27 H 25 H 36 H Rate Blood Pressure 198/139 182/120 194/123 Blood Pressure [Right] O2 Sat by Pulse 96 97 96 Oximetry 07/29/21 07/29/21 07/29/21 01:16 01:30 01:46 Temperature Pulse Rate 101 H 98 H 101 H Respiratory 36 H 39 H 35 H Rate Blood Pressure 186/113 170/107 165/104 Blood Pressure [Right] O2 Sat by Pulse 90 93 93 Oximetry 07/29/21 07/29/21 07/29/21 02:00 02:16 02:30 Temperature Pulse Rate 99 H 97 H 98 H Respiratory 37 H 31 H 35 H Rate Blood Pressure 164/94 153/84 176/84 Blood Pressure [Right] O2 Sat by Pulse 92 90 89 Oximetry 07/29/21 07/29/21 07/29/21 02:46 03:00 03:16 Temperature Pulse Rate 102 H 105 H 102 H Respiratory 29 H 19 34 H Rate Blood Pressure 145/85 160/72 169/67 Blood Pressure [Right] O2 Sat by Pulse 92 96 92 Oximetry 07/29/21 07/29/21 07/29/21 03:30 03:46 04:00 Temperature Pulse Rate 98 H 94 H 109 H Respiratory 24 34 H 26 H Rate Blood Pressure 147/75 152/78 152/78 Blood Pressure [Right] O2 Sat by Pulse 92 92 94 Oximetry - Consultations Consultation #1: 07/29/21 00:[address] Huber. ED Medical Decision Making - Lab Data Result diagrams: 07/30/21 07:20 07/30/21 07:20 - Radiology Data Radiology results: report reviewed - Medical Decision Making Patient is 30 years old male with history of congestive heart failure and hypertension. Patient presented to the ER complaining of shortness of breath and difficulty breathing for the last 3 days. Patient stated that he is out of his all his medication. Patient denied any chest pain, fever or chills. Patient found to have a blood pressure of 232/160. Patient received Lasix and nitroglycerin with some improvement in his blood pressure however patient started on nitroglycerin drip. Labs reviewed and show significantly elevated BNP of more than 10,000. We will try to call [facility] several times with no response. I discussed the patient with Dr. Dorman, he agreed to admit the patient to medical service for further management. Critical Care Time: Yes Critical care time in (mins) excluding proc time.: 35 Critical care attestation.: If time is entered above; I have spent that time in minutes in the direct care of this critically ill patient, excluding procedure time. ED Disposition Clinical Impression: Acute exacerbation of CHF (congestive heart failure), Hypertensive emergency Disposition: ADMITTED INPATIENT Is pt being admited?: Yes Condition: Stable
--- NOTE | 2021-07-28 22:30 | XRay Report ---
CHEST 2 VIEWS INDICATION / CLINICAL INFORMATION: Dyspnea. COMPARISON: 03/13/2020 FINDINGS: SUPPORT DEVICES: None. HEART / MEDIASTINUM: Enlarged but unchanged LUNGS / PLEURA: Mild interstitial prominence bilaterally. No focal consolidation or significant effus ion. No pneumothorax. ADDITIONAL FINDINGS: No significant additional findings. IMPRESSION: Mild interstitial prominence bilaterally, could reflect mild pulmonary edema. Signer Name: Anson Skinner MD Signed: 07/28/2021 10:25 PM Workstation Name: [id number]; to (do)-[id number]
[2021-07-28] MEDS ORDERED: NITROGLYCERIN 0.4 MG TAB SUBL SL ONE (22:43)
[2021-07-28 22:56] LABS: Basophils # (Auto) 0.1 K/mm3 (0.0-0.1); Basophils % (Auto) 0.7 % (0.0-1.8); Eosinophils # (Auto) 0.1 K/mm3 (0.0-0.4); Eosinophils % (Auto) 1.6 % (0.0-4.3); Hemoglobin 12.3 gm/dl (11.8-15.2); Lymphocytes # (Auto) 2.1 K/mm3 (1.2-5.4); Lymphocytes % (Auto) 24.8 % (13.4-35.0); Mean Corpuscular HGB Conc 32 % (32-34); Mean Corpuscular Volume 83 fl (84-94); Monocytes # (Auto) 0.4 K/mm3 (0.0-0.8); Monocytes % (Auto) 4.7 % (0.0-7.3); Platelet Count 198 K/mm3 (140-440); Red Blood Count 4.68 M/mm3 (3.65-5.03)
[2021-07-28 23:04] LABS: INR 0.93 (0.87-1.13)
[2021-07-28 23:23] LABS: Albumin 3.9 g/dL (3.9-5); Bilirubin,Direct 0.2 mg/dL (0-0.2)
[2021-07-28] MEDS ORDERED: NITROGLYCERIN DRIP 50 MG/250 ML BOTTLE IV SCH (23:45)
[2021-07-29] MEDS ORDERED: niCARdipine DRIP 40 MG/200 ML BAG IV ONE ×2 (00:01→03:57)
[2021-07-29] MEDS ORDERED: ONDANSETRON 4 MG/2 ML INJ IV PRN (01:57)
[2021-07-29] MEDS ORDERED: ACETAMINOPHEN 325 MG TAB PO PRN (01:57)
[2021-07-29] MEDS ORDERED: ALBUTEROL 2.5 MG/3 ML NEBU IH PRN (01:57)
[2021-07-29] MEDS ORDERED: HYDROmorphone 1 MG/1 ML INJ IV PRN (01:57)
[2021-07-29] MEDS ORDERED: MORPHINE 2 MG/1 ML INJ IV PRN (01:57)
--- NOTE | 2021-07-29 02:06 | History and Physical Report ---
History of Present Illness Date of examination: 07/29/21 Date of admission: 07/29/21 Chief complaint: Shortness of breath History of present illness: 30 years old male with history of congestive heart failure and hypertension and obesity was brought to the emergency room because of progressive shortness of breath and difficulty breathing for the last 3 days. Patient stated that he is out of his all his medication. Patient denied any chest pain, fever or chills. In the emergency room patient is found to have acute [place] [address] and chest x-ray compatible with pulmonary edema. Patient blood pressure also 182/120 subsequently patient was put on nitro drip and Lasix were going to admit the patient we will put the patient on ICU will consult cardiology as well as critical care evaluation Past History Past Medical History: heart failure, hypertension, other (Obesity) Past Surgical History: No surgical history Social history: other (Non-smoker) Family history: hypertension Medications and Allergies Allergies Allergy/AdvReac Type Severity Reaction Status Date / Time No Known Allergies Allergy Unverified 03/13/20 12:05 Home Medications Medication Instructions Recorded Confirmed Last Taken Type Aspirin EC [Halfprin EC] 81 mg PO QDAY #30 tablet. 03/16/20 07/28/21 Unknown Rx Furosemide [Lasix TAB] 40 mg PO QDAY #30 tablet 03/16/20 07/28/21 Unknown Rx ISOSORBIDE MONOnitrate [Imdur ER] 30 mg PO QDAY #30 tablet 03/16/20 07/28/21 Unknown Rx Losartan [Cozaar] 50 mg PO QDAY #30 tablet 03/16/20 07/28/21 Unknown Rx amLODIPine 10 mg PO QDAY #30 tablet 03/16/20 07/28/21 Unknown Rx carvediloL [Coreg] 25 mg PO BID #60 tablet 03/16/20 07/28/21 Unknown Rx hydrALAZINE [Apresoline TAB] 100 mg PO Q8HR #90 tab 03/16/20 07/28/21 Unknown Rx Active Meds: Active Medications Nicardipine/Sodium Chloride (Cardene Drip 40 Mg/200 Ml) 40 mg in 200 mls @ 25 mls/hr IV ONCE ONE; Protocol Stop: 07/29/21 08:00 Last Titration: 07/29/21 01:53 Dose: 15 mg/hr, 75 mls/hr Review of Systems All systems: negative Cardiovascular: orthopnea, edema, shortness of breath, dyspnea on exertion, paroxysmal nocturnal dyspnea Respiratory: shortness of breath, dyspnea on exertion Exam - Constitutional Vitals: Temp Pulse Resp BP Pulse Ox 98.2 F 101 H 35 H 165/104 93 07/28/21 21:15 07/29/21 01:46 07/29/21 01:46 07/29/21 01:46 07/29/21 01:46 General appearance: Present: no acute distress, well-nourished - EENT Eyes: Present: PERRL ENT: hearing intact, clear oral mucosa - Neck Neck: Present: supple, normal ROM - Respiratory Respiratory effort: normal Respiratory: bilateral: rales - Cardiovascular Heart Sounds: Present: S1 & S2. Absent: rub, click - Extremities Extremities: pulses symmetrical, No edema Peripheral Pulses: within normal limits - Abdominal General gastrointestinal: Present: soft, non-tender, non-distended, normal bowel sounds Male genitourinary: Present: normal - Integumentary Integumentary: Present: clear, warm, dry - Musculoskeletal Musculoskeletal: gait normal, strength equal bilaterally - Psychiatric Psychiatric: appropriate mood/affect, intact judgment & insight - Neurologic Neurologic: CNII-XII intact, moves all extremities HEART Score - HEART Score Troponin: Troponin T < 0.010 ng/mL (0.00-0.029) 07/29/21 00:48 Results - Labs CBC & Chem 7: 07/28/21 22:37 07/28/21 22:37 Labs: Laboratory Last Values WBC 8.6 K/mm3 (4.5-11.0) 07/28/21 22:37 RBC 4.68 M/mm3 (3.65-5.03) 07/28/21 22:37 Hgb 12.3 gm/dl (11.8-15.2) 07/28/21 22:37 Hct 39.0 % (35.5-45.6) 07/28/21 22:37 MCV 83 fl (84-94) L 07/28/21 22:37 MCH 26 pg (28-32) L 07/28/21 22:37 MCHC 32 % (32-34) 07/28/21 22:37 RDW 18.0 % (13.2-15.2) H 07/28/21 22:37 Plt Count 198 K/mm3 (140-440) 07/28/21 22:37 Lymph % (Auto) 24.8 % (13.4-35.0) 07/28/21 22:37 Burt % (Auto) 4.7 % (0.0-7.3) 07/28/21 22:37 Eos % (Auto) 1.6 % (0.0-4.3) 07/28/21 22:37 Baso % (Auto) 0.7 % (0.0-1.8) 07/28/21 22:37 Lymph # (Auto) 2.1 K/mm3 (1.2-5.4) 07/28/21 22: Burt # (Auto) 0.4 K/mm3 (0.0-0.8) 07/28/21 22: Eos # (Auto) 0.1 K/mm3 (0.0-0.4) 07/28/21 22:37 Baso # (Auto) 0.1 K/mm3 (0.0-0.1) 07/28/21 22:37 Seg Neutrophils % 68.2 % (40.0-70.0) 07/28/21 22:37 Seg Neutrophils # 5.9 K/mm3 (1.8-7.7) 07/28/21 22:37 PT 13.5 Sec. (12.2-14.9) 07/28/21 22:37 INR 0.93 (0.87-1.13) 07/28/21 22:37 APTT 28.0 Sec. (24.2-36.6) 07/28/21 22:37 Sodium 143 mmol/L (137-145) 07/28/21 22:37 Potassium 3.3 mmol/L (3.6-5.0) L 07/28/21 22:37 Chloride 107.0 mmol/L (98-107) 07/28/21 22:37 Carbon Dioxide 23 mmol/L (22-30) 07/28/21 22:37 Anion Gap 16 mmol/L 07/28/21 22:37 BUN 20 mg/dL (9-20) 07/28/21 22:37 Creatinine 1.8 mg/dL (0.8-1.3) H 07/28/21 22:37 Estimated GFR 45 ml/min 07/28/21 22:37 BUN/Creatinine Ratio 11 % 07/28/21 22:37 Glucose 93 mg/dL (75-100) 07/28/21 22:37 Calcium 9.0 mg/dL (8.4-10.2) 07/28/21 22:37 Total Bilirubin 1.00 mg/dL (0.1-1.2) 07/28/21 22:37 Direct Bilirubin 0.2 mg/dL (0-0.2) 07/28/21 22:37 Indirect Bilirubin 0.8 mg/dL 07/28/21 22:37 AST 19 units/L (5-40) 07/28/21 22:37 ALT 30 units/L (7-56) 07/28/21 22:37 Alkaline Phosphatase 87 units/L (35-129) 07/28/21 22:37 Troponin T < 0.010 ng/mL (0.00-0.029) 07/29/21 00:48 NT-Pro-B Natriuret Pep 05651 pg/mL (0-450) H 07/28/21 22:37 Total Protein 6.3 g/dL (6.3-8.2) 07/28/21 22:37 Albumin 3.9 g/dL (3.9-5) 07/28/21 22:37 Albumin/Globulin Ratio 1.6 % 07/28/21 22:37 - Imaging and Cardiology Chest x-ray: report reviewed Assessment and Plan VTE prophylaxis?: Mechanical Plan of care discussed with patient/family: Yes - Patient Problems (1) Acute exacerbation of CHF (congestive heart failure) Current Visit: Yes Status: Acute Plan to address problem: Admit the patient to the ICU. Cardiac diet. Fluid restriction. Lasix 40 mg IV every 12 hours. Maintain input output. Losartan 50 mg p.o. daily. Coreg 25 mg p.o. twice daily. Echocardiogram. Cardiology evaluation. Critical care evaluation (2) Hypertensive emergency Current Visit: Yes Status: Acute Plan to address problem: Patient is on nitro drip. We will continue the Imdur 30 mg p.o. daily. Losartan 50 mg p.o. daily amlodipine 10 mg p.o. daily and Coreg 25 mg p.o. twice daily, hydralazine 100 mg p.o. every 8 hours (3) Cardiomyopathy Current Visit: No Status: Chronic Plan to address problem: .We will continue the Imdur 30 mg p.o. daily. Losartan 50 mg p.o. daily amlodipine 10 mg p.o. daily and Coreg 25 mg p.o. twice daily, hydralazine 100 mg p.o. every 8 hours. Echocardiogram. Cardiology evaluation (4) Morbid obesity Current Visit: No Status: Chronic Plan to address problem: We counseled the patient regarding weight loss. Outpatient follow-up with bariatric surgery (5) Uncontrolled hypertension Current Visit: No Status: Chronic Plan to address problem: We will continue the Imdur 30 mg p.o. daily. Losartan 50 mg p.o. daily amlodipine 10 mg p.o. daily and Coreg 25 mg p.o. twice daily, hydralazine 100 mg p.o. every 8 hours (6) Sleep apnea Current Visit: No Status: Suspected Plan to address problem: Outpatient sleep study. (7) DVT prophylaxis Current Visit: No Status: Acute Plan to address problem: SCD for DVT prophylaxis. Pepcid 20 mg p.o. twice daily for GI prophylaxis. Patient is a full code
[2021-07-29] MEDS: IPRATROPIUM/ALBUTEROL SULFATE 3 ML AMPUL.NEB IH SCH ×4 (04:09→20:48)
[2021-07-29] MEDS: hydrALAZINE 100 MG TAB PO SCH ×3 (06:12→21:41)
[2021-07-29] MEDS: FUROSEMIDE 40 MG/4 ML INJ IV SCH ×2 (06:13→17:32)
[2021-07-29] MEDS ORDERED: niCARdipine 50 MG in SODIUM CHLORIDE 0.9% 250ML 230 ML IV SCH (06:45)
[2021-07-29] MEDS ORDERED: POTASSIUM CHLORIDE ER 20 MEQ TAB PO NR (07:25)
[2021-07-29] MEDS: carvediloL 25 MG TAB PO SCH ×2 (09:14→17:32)
[2021-07-29] MEDS: amLODIPine 10 MG TAB PO SCH (09:15)
[2021-07-29] MEDS: ASPIRIN EC 81 MG TAB PO SCH (09:15)
[2021-07-29] MEDS: LOSARTAN 50 MG TAB PO SCH (09:15)
[2021-07-29] MEDS: FAMOTIDINE 20 MG TAB PO SCH ×2 (09:16→21:42)
[2021-07-29 10:10] LABS: Calcium 8.5 mg/dL (8.4-10.2)
--- NOTE | 2021-07-29 11:09 | Consultation ---
History of Present Illness Consult date: 07/29/21 Requesting physician: JOSE STEARNS Consult reason: congestive heart failure History of present illness: Chief complaint: Shortness of breath This is a 30-year-old male with past medical history of HFrEF (EF 25 to 30% in 2019) and hypertension now admitted to the ICU with acute on chronic heart failure. He reports that he has had a difficult time breathing over the past 2 days, but it significantly worsened yesterday to the point where he felt that he was gasping for air, and states he could not walk nor sleep overnight which prompted his arrival to the hospital. He reports orthopnea, dyspnea on exertion, and bilateral lower extremity swelling. He denies PND, chest pain, nausea/vomiting or recent sick contacts. He states that he has been out of his heart failure medications for several months and has not seen a invoice clerk in some time. He further reports he is noncompliant with fluid restrictions, however, he does try to follow a strict cardiac low-sodium diet. Cardiology is consulted for CHF. 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 denies: smoking, alcohol abuse Family history: hypertension Medications and Allergies Allergies Allergy/AdvReac Type Severity Reaction Status Date / Time No Known Allergies Allergy Unverified 03/13/20 12:05 Home Medications Medication Instructions Recorded Confirmed Last Taken Type Aspirin EC [Halfprin EC] 81 mg PO QDAY #30 tablet. 03/16/20 07/28/21 Unknown Rx Furosemide [Lasix TAB] 40 mg PO QDAY #30 tablet 03/16/20 07/28/21 Unknown Rx ISOSORBIDE MONOnitrate [Imdur ER] 30 mg PO QDAY #30 tablet 03/16/20 07/28/21 Unknown Rx Losartan [Cozaar] 50 mg PO QDAY #30 tablet 03/16/20 07/28/21 Unknown Rx amLODIPine 10 mg PO QDAY #30 tablet 03/16/20 07/28/21 Unknown Rx carvediloL [Coreg] 25 mg PO BID #60 tablet 03/16/20 07/28/21 Unknown Rx hydrALAZINE [Apresoline TAB] 100 mg PO Q8HR #90 tab 03/16/20 07/28/21 Unknown Rx Active Meds: Active Medications Acetaminophen (Acetaminophen 325 Mg Tab) 650 mg PO Q4H PRN PRN Reason: Pain MILD(1-3)/Fever >100.5/HAGEN Albuterol (Albuterol 2.5 Mg/3 Ml Nebu) 2.5 mg IH Q3HRT PRN PRN Reason: Shortness Of Breath Albuterol/Ipratropium (Ipratropium/Albuterol Sulfate 3 Ml Ampul.Neb) 1 ampul IH Q6HRT [facility] Last Admin: 07/29/21 10:12 Dose: Not Given Amlodipine Besylate (Amlodipine 10 Mg Tab) 10 mg PO QDAY [facility] Last Admin: 07/29/21 09:15 Dose: 10 mg Aspirin (Aspirin Ec 81 Mg Tab) 81 mg PO QDAY [facility] Last Admin: 07/29/21 09:15 Dose: 81 mg Carvedilol (Carvedilol 25 Mg Tab) 25 mg PO BID@0800,1700 [facility] Last Admin: 07/29/21 09:14 Dose: 25 mg Famotidine (Famotidine 20 Mg Tab) 20 mg PO BID [facility] Last Admin: 07/29/21 09:16 Dose: 20 mg Furosemide (Furosemide 40 Mg/4 Ml Inj) 40 mg IV BID@0600,1800 [facility] Last Admin: 07/29/21 06:13 Dose: 40 mg Hydralazine HCl (Hydralazine 100 Mg Tab) 100 mg PO Q8HR [facility] Last Admin: 07/29/21 06:12 Dose: 100 mg Hydromorphone HCl (Hydromorphone 1 Mg/1 Ml Inj) 0.5 mg IV Q3H PRN PRN Reason: Pain , Severe (7-10) Nicardipine/Sodium Chloride (Cardene Drip 40 Mg/200 Ml) 40 mg in 200 mls @ 25 mls/hr IV ONCE ONE; Protocol Stop: 07/29/21 11:56 Last Titration: 07/29/21 07:00 Dose: Infused Nicardipine HCl 50 mg/ Sodium (Chloride) 250 mls @ 25 mls/hr IV TITR BREA; P rotocol Last Titration: 07/29/21 09:04 Dose: 5 mg/hr, 25 mls/hr Isosorbide Mononitrate (Isosorbide Mononitrate Er 30 Mg Tab) 30 mg PO QDAY [facility] Losartan Potassium (Losartan 50 Mg Tab) 50 mg PO QDAY [facility] Last Admin: 07/29/21 09:15 Dose: 50 mg Morphine Sulfate (Morphine 2 Mg/1 Ml Inj) 2 mg IV Q4H PRN PRN Reason: Pain, Moderate (4-6) Ondansetron HCl (Ondansetron 4 Mg/2 Ml Inj) 4 mg IV Q8H PRN PRN Reason: Nausea And Vomiting Potassium Chloride (Potassium Chloride Er 20 Meq Tab) 40 meq PO ONCE NR Stop: 07/29/21 12:00 Last Admin: 07/29/21 09:15 Dose: 40 meq Sodium Chloride (Sodium Chloride 0.9% 10 Ml Flush Syringe) 10 ml IV BID [facility] Last Admin: 07/29/21 09:16 Dose: 10 ml Sodium Chloride (Sodium Chloride 0.9% 10 Ml Flush Syringe) 10 ml IV PRN PRN PRN Reason: LINE FLUSH Review of Systems All systems: negative Cardiovascular: orthopnea, edema, shortness of breath, dyspnea on exertion, high blood pressure, leg edema, no chest pain, no palpitations, no syncope, no lightheadedness, no paroxysmal nocturnal dyspnea Respiratory: shortness of breath, dyspnea on exertion, no cough Gastrointestinal: no nausea, no vomiting Integumentary: no deferred Physical Examination Vital Signs Vital Signs Temp 98.2 F 07/28/21 21:15 Pulse 85 07/29/21 09:45 Resp 26 H 07/29/21 09:45 BP 111/66 07/29/21 09:45 Pulse Ox 98 07/29/21 10:00 Intake & Output 07/28/21 07/28/21 07/29/21 11:59 23:59 11:59 Intake Total 10 847.500 Output Total 3200 Balance 10 -0652.500 Weight 145.15 kg 166.5 kg Intake: IV 10 487.500 CARDENE DRIP 40 MG/200 ML 200.000 40 mg In 200 ml @ 5 MG/ HR 25 mls/hr IV ONCE ONE Rx#:[id number] CARDENE DRIP 40 MG/200 ML 200.000 40 mg In 200 ml @ 5 MG/ HR 25 mls/hr IV ONCE ONE Rx#:[id number] Cardene 50 mg In NaCl 0.9 77.5 % 250Ml 230 ml @ 5 MG/HR 25 mls/hr IV TITR BREA Rx# :[id number] Left Hand 10 10 Oral 360 Output: Urine 3200 Void 3200 Other: Total, Intake Amount 360 Total, Output Amount 500 Voiding Method Urinal General appearance: no acute distress HEENT: Positive: Normocephaly, Mucus Membranes Moist Neck: Positive: trachea midline Cardiac: Positive: Reg Rate and Rhythm, S1/S2 Lungs: Positive: clear to auscultation (Anterior- upper and lower lobe) Neuro: Positive: Grossly Intact Abdomen: Positive: Unremarkable, Soft, Active Bowel Sounds Male genitourinary: Positive: deferred Skin: Negative: Rash, Bruising Extremities: Present: normal, edema (Mild lower extremity edema, nonpitting), warm Results 07/28/21 22:37 07/29/21 07:25 Cardiac Enzymes 07/28/21 Range/Units 22:37 AST 19 (5-40) units/L Coagulation 07/28/21 Range/Units 22:37 PT 13.5 (12.2-14.9) Sec. INR 0.93 (0.87-1.13) APTT 28.0 (24.2-36.6) Sec. CBC 07/28/21 Range/Units 22:37 WBC 8.6 (4.5-11.0) K/mm3 RBC 4.68 (3.65-5.03) M/mm3 Hgb 12.3 (11.8-15.2) gm/dl Hct 39.0 (35.5-45.6) % Plt Count 198 (140-440) K/mm3 Lymph # (Auto) 2.1 (1.2-5.4) K/mm3 [place] # (Auto) 0.4 (0.0-0.8) K/mm3 Eos # (Auto) 0.1 (0.0-0.4) K/mm3 Baso # (Auto) 0.1 (0.0-0.1) K/mm3 Comprehensive Metabolic Panel 07/28/21 07/28/21 07/29/21 Range/Units 22:37 22:37 07:25 Sodium 143 142 (137-145) mmol/L Potassium 3.3 L 4.0 D (3.6-5.0) mmol/L Chloride 107.0 103.4 (98-107) mmol/L Carbon Dioxide 23 26 (22-30) mmol/L BUN 20 19 (9-20) mg/dL Creatinine 1.8 H 1.7 H (0.8-1.3) mg/dL Glucose 93 106 H (75-100) mg/dL Calcium 9.0 8.5 (8.4-10.2) mg/dL Direct Bilirubin 0.2 (0-0.2) mg/dL Indirect Bilirubin 0.8 mg/dL AST 19 (5-40) units/L ALT 30 (7-56) units/L Alkaline Phosphatase 87 (35-129) units/L Total Protein 6.3 (6.3-8.2) g/dL Albumin 3.9 (3.9-5) g/dL - Imaging and Cardiology Echo: pending EKG: pending EKG interpretations - Telemetry EKG Rhythm: Sinus Rhythm - EKG Sinus rhythms and dysrhythmias: sinus rhythm Assessment and Plan Assessment: Acute on chronic HFrEF Hypertensive emergency Obesity JENAE Medical noncompliance ? Sleep apnea Cardiographics: Echocardiogram -03/15/2020: Moderate to severe concentric left ventricular hypertrophy is observed. Global left ventricular systolic function is moderate to severely decreased. The estimated EF is 25 to 30%. The left ventricular diastolic filling pattern is consistent with elevated mean left atrial pressure. The left atrium is severely dilated CXR -07/28/2021: Mild interstitial prominence bilaterally, could reflect mild pulmonary edema Recommendations/plan: -Repeat echocardiogram pending -Troponins noted to be negative x2. -Good urine output overall. Agree with IV Lasix -Patient blood pressure improved on Cardene drip. Titrate down as tolerated -Continue GDMT: Aspirin, carvedilol 25 mg p.o. twice daily, Lasix 40 mg IV twice daily, hydralazine 100 mg p.o. every 8, Imdur 30 mg p.o. daily, losartan 50 mg p.o. daily -Closely monitor renal function. Electrolytes acceptable at this time -Strict I&O, daily weight -Education provided on importance of dietary, fluid restriction, and medication compliance -Follow-up appointment outpatient with our group 08/21/21 @ 2:45, [place] office, with Dr. Marie. Thank you for this consultation; we will follow along. Patient seen in conjunction with Dr. Marie who agrees with the assessment and management of this patient. - Patient Problems (1) Acute exacerbation of CHF (congestive heart failure) Current Visit: Yes Status: Acute (2) Hypertensive emergency Current Visit: Yes Status: Acute (3) Acute HFrEF (heart failure with reduced ejection fraction) Current Visit: Yes Status: Acute (4) Morbid obesity Current Visit: Yes Status: Chronic (5) Uncontrolled hypertension Current Visit: Yes Status: Chronic (6) Medical non-compliance Current Visit: Yes Status: Acute
--- NOTE | 2021-07-29 13:48 | Event Note ---
Date: 07/29/21 This is a 30-year-old morbidly obese male with heart failure reduced EF (20 to 30% 2019), hypertension, cardiomyopathy who presented to emergency department on 07/28 with complaints of shortness of breath and difficulty breathing over the past 3 days and stated he was out of his all of his medications. [place] [address] and CXR findings are compatible with pulmonary edema. In the emergency department he also had a blood pressure of 182/120 and patient was given Lasix and started on a nicardipine drip. Patient was admitted to the hospitalist service with consults to cardiology and CCM to the ICU. Hospital course to date: 07/29: Patient has been weaned off Cardene drip early this morning and p.o. medications have been restarted. Patient's blood pressure has been within normal limits to this afternoon. Patient be transferred to the floor. Assessment and plan: This is a 30-year-old male with morbid obesity, hypertension, HFrEF, cardiomyopathy admitted with hypertensive urgency and CHF exacerbation. Neuro: Medical noncompliance -Avoid delirium -Reorientation as needed -Maintain sleep-wake cycle -Stressed medical compliance Cardiac: Hypertensive urgency, CHF exacerbation, h/o HFrEF (20 to 30%), HTN, cardiomyopathy -Cardiology consulted, appreciate recommendations -Blood pressure monitoring per protocol -S/p Cardene drip -Restart home cardiac regimen: Aspirin, carvedilol, Lasix, hydralazine, Imdur, losartan -02/2020 echocardiogram showed LVH, EF 25 to 30% -Repeat echocardiogram pending -IV Lasix 40 twice daily -CCM consulted, patient recommendations -proBNP 78639 Respiratory: OHS -Supplemental oxygen as needed -Pulmonary hygiene -SPO2 monitoring GI: Morbid obesity -24 hours-no recorded -PPI -Cardiac diet -BR: Colace : Acute kidney injury -Likely secondary to volume overload -Diuresis with IV Lasix -Strict intake and output -Renally dose medications -Daily weights ID: NAD -Monitor WBC and temperature curve Endo: NAD -Avoid hypoglycemia Heme: NAD -Trend CBC -Transfuse hemoglobin less than 7 -Monitor for signs of bleeding -SCDs to BLE while in bed -Heparin subcu Disposition: Transfer to floor The high probability of a clinically significant, sudden or life threatening deterioration of the [cardio/renal] system(s) required my full and direct attention, intervention and personal management. The aggregate critical care time was [60] minutes. This time is in addition to time spent performing reported procedures but includes the following: [x] Data Review and interpretation [x] Patient assessment and monitoring of vital signs [x] Documentation [x] Medication orders and management
[2021-07-29] MEDS: HEPARIN 5,000 UNIT/1 ML VIAL SUB-Q SCH ×2 (16:30→21:41)
[2021-07-29] MEDS: DOCUSATE SODIUM 100 MG/10 ML ORAL LIQD PO SCH (21:42)
[2021-07-30] MEDS: FUROSEMIDE 40 MG/4 ML INJ IV SCH (06:07)
[2021-07-30] MEDS: hydrALAZINE 100 MG TAB PO SCH (06:07)
[2021-07-30] MEDS: HEPARIN 5,000 UNIT/1 ML VIAL SUB-Q SCH (06:07)
[2021-07-30] MEDS: carvediloL 25 MG TAB PO SCH (08:25)
[2021-07-30 08:31] LABS: Calcium 9.3 mg/dL (8.4-10.2)
[2021-07-30 08:35] LABS: Mean Corpuscular HGB Conc 31 % (32-34); Mean Corpuscular Volume 84 fl (84-94); Platelet Count 200 K/mm3 (140-440); Red Blood Count 5.52 M/mm3 (3.65-5.03); Red Cell Distribution Width 18.1 % (13.2-15.2)
[2021-07-30 08:36] LABS: Hematocrit 46.3 % (35.5-45.6); Hemoglobin 14.3 gm/dl (11.8-15.2)
--- NOTE | 2021-07-30 08:48 | Discharge Summary ---
Providers - Providers Date of Admission: 07/29/21 01:57 Attending physician: PHYLLIS MARCUS MD 07/28/21 23:43 Consult to Physician [CONS] Stat Comment: Dr. Goncalves spoke with Dr. Huber @ [phone] Consulting Provider: MANOLO HUBER Physician Instructions: Reason For Exam: Hypertensive emergency 07/29/21 01:57 Consult to Physician [CONS] Routine Comment: Consulting Provider: DEXTER SOLO Physician Instructions: Reason For Exam: chf Primary care physician: DERRICK HAND Hospitalization Reason for admission: shortness of breath Condition: Stable Hospital course: HPI: This is a 30-year-old morbidly obese male with heart failure reduced EF (20 to 30% 2019), hypertension, cardiomyopathy who presented to emergency department on 07/28 with complaints of shortness of breath and difficulty breathing over the past 3 days and stated he was out of his all of his medications. Work-[place] [address] and CXR findings are compatible with pulmonary edema. In the emergency department he also had a blood pressure of 182/120 and patient was given Lasix and started on a nicardipine drip. Primitivo russ was admitted to the hospitalist service with consults to cardiology and CCM to the ICU. Hospital course to date: 07/29: Patient has been weaned off Cardene drip early this morning and p.o. medications have been restarted. Patient's blood pressure has been within normal limits to this afternoon. Patient be transferred to the floor. 07/30: Blood pressure controlled. Discharge patient home on amlodipine, aspirin ,coreg, lasix, imdur, losartan, hydralazine. Assessment and plan: This is a 30-year-old male with morbid obesity, hypertension, HFrEF, cardiomyopathy admitted with hypertensive urgency and CHF exacerbation. Neuro: Medical noncompliance -Avoid delirium -Reorientation as needed -Maintain sleep-wake cycle -Stressed medical compliance Cardiac: Hypertensive urgency, CHF exacerbation, h/o HFrEF (20 to 30%), HTN, cardiomyopathy -Cardiology consulted, appreciate recommendations -Blood pressure monitoring per protocol -S/p Cardene drip -Restart home cardiac regimen: Aspirin, carvedilol, Lasix, hydralazine, Imdur, losartan -02/2020 echocardiogram showed LVH, EF 25 to 30% -Repeat echocardiogram pending -IV Lasix 40 twice daily -CCM consulted, patient recommendations -proBNP 62832 Respiratory: OHS -Supplemental oxygen as needed -Pulmonary hygiene -SPO2 monitoring GI: Morbid obesity -24 hours-no recorded -PPI -Cardiac diet -BR: Colace : Acute kidney injury -Likely secondary to volume overload -Diuresis with IV Lasix -Strict intake and output -Renally dose medications -Daily weights ID: NAD -Monitor WBC and temperature curve Endo: NAD -Avoid hypoglycemia Heme: NAD -Trend CBC -Transfuse hemoglobin less than 7 -Monitor for signs of bleeding -SCDs to BLE while in bed -Heparin subcu Disposition: 30 STILL A PATIENT Final Discharge Diagnosis (Prints w/discharge instructions): Acute systolic heart failure, hypertensive urgency Time spent for discharge: 35 Core Measure Documentation - Palliative Care Palliative Care/ Comfort Measures: Not Applicable - Core Measures Any of the following diagnoses?: heart failure - Heart Failure Discharge Requirements LUISITO/ARB for LVSD if EF <40%: Yes Beta hussain at discharge: Yes Exam - Physical Exam Narrative exam: General: No Apparent Distress HEENT: Positive: Normocephaly, Mucus Membranes Moist Neck: Positive: trachea midline Cardiac: Positive: Reg Rate and Rhythm Lungs: Positive: Normal Breath Sounds Neuro: Positive: Grossly Intact Abdomen: Positive: Unremarkable, Soft, Active Bowel Sounds Skin: Negative: Rash, Bruising Extremities: Present: normal, upper extr. pulses, warm. Absent: edema (Mild lower extremity edema, nonpitting) - Constitutional Vitals: Temp Pulse Resp BP Pulse Ox 98.8 F 84 18 154/87 95 07/30/21 07:56 07/30/21 07:56 07/30/21 07:56 07/30/21 07:56 07/30/21 07:56 Plan Activity: no restrictions Diet: low cholesterol, low salt Follow up with: PRIMARY CARE, [Primary Care Provider] - 3-5 Days Prescriptions: amLODIPine 10 mg PO QDAY 30 Days #30 tablet hydrALAZINE [Apresoline TAB] 100 mg PO Q8HR 30 Days #90 tab carvediloL [Coreg] 25 mg PO BID@0800,1700 30 Days #60 tablet Losartan [Cozaar] 50 mg PO QDAY 30 Days #30 tablet Aspirin EC [Halfprin EC] 81 mg PO QDAY 30 Days #30 tablet ISOSORBIDE MONOnitrate [Imdur ER] 30 mg PO QDAY 30 Days #30 tablet Furosemide [Lasix TAB] 40 mg PO QDAY 30 Days #30 tablet
[2021-07-30] MEDS: IPRATROPIUM/ALBUTEROL SULFATE 3 ML AMPUL.NEB IH SCH ×2 (09:45→15:46)
--- NOTE | 2021-07-30 10:22 | Electrocardiograph Report ---
[facility] Test Date: 2021-07-28 Test Time: 21:33:23 Pat Name: EMILI SHARIF Department: Room: A467 Gender: M Senior Internal Auditor: TETO : 1990 Requested By: SHAZIA CARDONA Order Number: [id number] Reading MD: Jarret Marie Measurements Intervals [place] Rate: 93 P: 56 UT: 171 QRS: 22 QRSD: 89 T: 135 QT: 375 QTc: 467 Interpretive Statements Sinus rhythm Probable left atrial enlargement Nonspecific T abnormalities, lateral leads No previous ECG available for comparison Electronically Signed On 07-30-2021 10:22:17 EDT by Jarret Marie
[2021-07-30] MEDS: ASPIRIN EC 81 MG TAB PO SCH (10:24)
[2021-07-30] MEDS: amLODIPine 10 MG TAB PO SCH (10:25)
[2021-07-30] MEDS: LOSARTAN 50 MG TAB PO SCH (10:25)
[2021-07-30] MEDS: DOCUSATE SODIUM 100 MG/10 ML ORAL LIQD PO SCH (10:29)
[2021-07-30] MEDS: FAMOTIDINE 20 MG TAB PO SCH (12:08)
[2021-07-30 12:09] VITALS: BP 147/87
--- NOTE | 2021-07-30 12:28 | Progress Note ---
Assessment and Plan This is a 30-year-old male with past medical history of HFrEF (EF 25 to 30% in 2020) and hypertension now admitted to the ICU with acute on chronic heart failure. Acute on chronic HFrEF Hypertensive emergency Obesity JENAE Medical noncompliance ? Sleep apnea Echo 07/29/2021-EF 45 to 50%. Moderate concentric LVH. Mild global hypokinesis of LV. Right ventricle is dilated. Right ventricular systolic function is normal. Left atrium is severely dilated Echocardiogram 03/15/2020: Moderate to severe concentric left ventricular hypertrophy is observed. Global left ventricular systolic function is moderate to severely decreased. The estimated EF is 25 to 30%. The left ventricular diastolic filling pattern is consistent with elevated mean left atrial pressure. The left atrium is severely dilated Plan: Continue GDMT: Aspirin, carvedilol 25 mg p.o. twice daily, hydralazine 100 mg p.o. every 8 hour, Imdur 30 mg p.o. daily, losartan 50 mg p.o. daily Education provided on importance of dietary, fluid restriction, and medication compliance Cardiac status otherwise stable Follow-up appointment outpatient with our group 08/21/21 @ 2:45pm, [place] office, with Dr. Marie. Patient seen in conjunction with Dr. Marie who agrees with the assessment and management of this patient. - Patient Problems (1) Acute HFrEF (heart failure with reduced ejection fraction) Current Visit: Yes Status: Acute (2) Hypertensive emergency Current Visit: Yes Status: Acute (3) Medical non-compliance Current Visit: Yes Status: Acute (4) Morbid obesity Current Visit: Yes Status: Chronic (5) Cardiomyopathy Current Visit: No Status: Chronic (6) Sleep apnea Current Visit: No Status: Suspected Subjective Date of service: 07/30/21 Principal diagnosis: Acute HFrEF, hypertensive emergency Interval history: Patient resting in bed in no acute distress. Patient denies any complaints Sinus 80s on monitor with no events Objective Vital Signs Temp Pulse Pulse Resp Resp BP Pulse Ox 07/30/21 11:26 98.4 F 80 18 147/87 94 07/30/21 10:00 100 07/30/21 07:56 98.8 F 84 18 154/87 95 07/30/21 04:34 81 93 07/30/21 03:32 98.0 F 18 168/101 07/30/21 03:14 100 07/29/21 23:39 97.7 F 78 18 145/76 94 07/29/21 20:55 98 07/29/21 20:51 68 18 07/29/21 19:09 97.5 F L 80 18 123/77 95 07/29/21 17:45 82 18 163/91 96 07/29/21 17:32 76 165/75 07/29/21 17:30 78 23 163/91 96 07/29/21 17:15 85 15 93/51 97 07/29/21 17:00 79 23 93/51 94 07/29/21 16:45 75 21 90/41 93 07/29/21 16:30 73 19 91/41 94 07/29/21 16:15 76 22 96/51 91 07/29/21 16:00 75 24 98/44 93 07/29/21 15:45 77 22 104/52 92 07/29/21 15:30 77 29 H 98/53 95 07/29/21 15:15 77 29 H 112/58 96 07/29/21 15:00 83 10 L 126/65 97 07/29/21 14:45 83 30 H 116/62 97 07/29/21 14:30 90 17 124/64 97 07/29/21 14:15 89 10 L 119/60 97 07/29/21 14:00 78 31 H 110/60 95 07/29/21 13:45 79 22 115/64 94 07/29/21 13:30 81 13 124/74 97 07/29/21 13:15 88 12 137/95 07/29/21 13:00 81 26 H 137/95 96 07/29/21 12:45 93 H 23 114/66 93 07/29/21 12:30 77 33 H 114/66 93 - Physical Examination General: No Apparent Distress HEENT: Positive: Normocephaly, Mucus Membranes Moist Neck: Positive: trachea midline Cardiac: Positive: Reg Rate and Rhythm Lungs: Positive: Normal Breath Sounds Neuro: Positive: Grossly Intact Abdomen: Positive: Unremarkable, Soft, Active Bowel Sounds Skin: Negative: Rash, Bruising Extremities: Present: normal, upper extr. pulses, warm. Absent: edema (Mild lower extremity edema, nonpitting) - Labs and Meds CBC 07/30/21 Range/Units 07:20 WBC 8.1 (4.5-11.0) K/mm3 RBC 5.52 H (3.65-5.03) M/mm3 Hgb 14.3 (11.8-15.2) gm/dl Hct 46.3 H D (35.5-45.6) % Plt Count 200 (140-440) K/mm3 Lymph # (Auto) Hospice Consultant [place] # (Auto) Hospice Consultant Eos # (Auto) Hospice Consultant Baso # (Auto) Hospice Consultant Comprehensive Metabolic Panel 07/30/21 Range/Units 07:20 Sodium 138 (137-145) mmol/L Potassium 3.5 L (3.6-5.0) mmol/L Chloride 99.8 (98-107) mmol/L Carbon Dioxide 21 L (22-30) mmol/L BUN 19 (9-20) mg/dL Creatinine 1.6 H (0.8-1.3) mg/dL Glucose 83 (75-100) mg/dL Calcium 9.3 (8.4-10.2) mg/dL - Imaging and Cardiology EKG: report reviewed Echo: report reviewed - Telemetry EKG Rhythm: Sinus Rhythm - EKG Sinus rhythms and dysrhythmias: sinus rhythm
== END 2021-07-30 14:35 | disposition home or self-care (01) | DRG 291 ==
LOC: ED 20:26 → CC1 07-29 01:57 → 4A 07-29 18:04
PROVIDERS: ADMIT Hospitalist; ATTEND Internal Medicine
DX: I11.0 Hypertensive heart disease with heart failure (principal); I50.23 Acute on chronic systolic (congestive) heart failure; I16.1 Hypertensive emergency; N17.9 Acute kidney failure, unspecified; Z68.43 Body mass index [BMI] 50.0-59.9, adult; I42.9 Cardiomyopathy, unspecified; E66.9 Obesity, unspecified; Z82.49 Family history of ischemic heart disease and other diseases of the circulatory system; E66.01 Morbid (severe) obesity due to excess calories; Z91.14 Patient's other noncompliance with medication regimen
CPT/HCPCS: 36415; 71046; 80048; 80076; 83735; 83880; 84100; 84484; 85025; 85610; 85730; 87040; 93005; 93306; 94640; 94760; G0378; J3490; C8929; J1644; J1940; J7050